=== PATIENT | female | born 1955 | race American Indian/Alaskan Native ===

== ENCOUNTER 2016-08-15 17:47 | Observation (INO) | payer MEDICARE ==
[2016-08-15 17:54] VITALS: BMI 33.3
[2016-08-15 18:27] LABS: HEMATOCRIT 33.9 % (36.0-48.0); MEAN CELL VOLUME 81.9 fL (80.0-105.0); MEAN CORPUSCULAR HEMOGLOBIN 27.5 pg (25.0-35.0); MEAN CORPUSCULAR HGB CONC 33.6 g/dl (31.0-37.0); MEAN PLATELET VOLUME 9.1 fl (7.0-11.0); PLATELET COUNT 341 10^3/uL (120.0-450.0); RED CELL DISTRIBUTION WIDTH 14.1 % (11.5-14.5); WHITE BLOOD COUNT 6.8 10^3/ul (4.5-11.0)
[2016-08-15 18:37] LABS: ADD MANUAL DIFF? YES
[2016-08-15 18:42] LABS: ALB/GLOB RATIO 1.1 (1.1-1.8); ALKALINE PHOSPHATASE 71 U/L (38-133); ALT/SGPT 25 U/L (7-56); AST/SGOT 24 U/L (15-39); BILIRUBIN,TOTAL 0.7 mg/dL (0.2-1.3); BLOOD UREA NITROGEN 15 mg/dL (7-21); CALCIUM 8.7 mg/dL (8.4-10.5); CARBON DIOXIDE 21 mmol/L (21-33); CHLORIDE 108 mmol/L (98-107); GFR AFRICAN-AMERICAN > 60; GLUCOSE,RANDOM 91 mg/dL (70-110); POTASSIUM 4.3 mmol/L (3.6-5.0); SODIUM 138 mmol/L (132-148); TOTAL PROTEIN 6.9 g/dL (5.8-8.3)
--- NOTE | 2016-08-15 18:49 | ED PDOC ---
Arrival/HPI - General Historian: Patient - History of Present Illness Symptom Onset: Sudden Symptom Course: Worsening Quality: Stabbing Severity Level: 3 <Na Garcia - Last Filed: 08/15/16 19:59> <Kasi Koroma - Last Filed: 08/15/16 20:19> - General Chief Complaint: Shortness Of Breath Time Seen by Provider: 08/15/16 18:06 - History of Present Illness Narrative History of Present Illness (Text): 08/15/16 18:44 67-year-old female with a history of hypertension, CHF presents today with shortness of breath that started around 2 PM today. Patient also complaining of sharp chest pain radiating to the back. Patient denies fevers or chills. Denies cough. Complaining of vague abdominal pain and "gassy" feeling since yesterday. States she is passing her bowels. Denies nausea or vomiting. Denies diarrhea. Patient states she did recently travel via plane from [place] to [place]. The patient denies dizziness or weakness. No medications taken at home for the pain. (Na Garcia) Past Medical History - Provider Review Nursing Documentation Reviewed: Yes - Travel History Have you recently traveled outside [place] w/in the past 3 mons?: No - Tetanus Immunization Tetanus Immunization: Unknown - Cardiac Hx Congestive Heart Failure: Yes Hx Hypertension: Yes - Psychiatric Hx Substance Use: No - Surgical History Other/Comment: Lap band surgery <Na Garcia - Last Filed: 08/15/16 19:59> Family/Social History - Physician Review Nursing Documentation Reviewed: Yes Family/Social History: Unknown Family HX Smoking Status: Never Smoked Hx Alcohol Use: No Hx Substance Use: No <Na Garcia - Last Filed: 08/15/16 19:59> Allergies/Home Meds <Na Garcia - Last Filed: 08/15/16 19:59> <Kasi Koroma - Last Filed: 08/15/16 20:19> Allergies/Adverse Reactions: Allergies No Known Allergies Allergy (Verified 08/15/16 17:54) Home Medications: Home Meds Medication Instructions Recorded Confirmed Carvedilol [Coreg] 25 mg PO DAILY 08/15/16 08/15/16 Ciprofloxacin HCl [Cipro] 500 mg PO DAILY 08/15/16 08/15/16 FLUoxetine [Prozac] 40 mg PO DAILY 08/15/16 08/15/16 Spironolactone [Aldactone] 25 mg PO DAILY 08/15/16 08/15/16 Zolpidem Tartrate [Ambien] 10 mg PO HS 08/15/16 08/15/16 Review of Systems - Review of Systems Constitutional: absent: Fatigue, Fevers ENT: absent: Sinus Congestion Respiratory: SOB. absent: Cough Cardiovascular: Chest Pain. absent: Palpitations Gastrointestinal: Abdominal Pain. absent: Diarrhea, Nausea, Vomiting Genitourinary Female: absent: Dysuria, Frequency Musculoskeletal: Back Pain. absent: Arthralgias, Neck Pain Skin: absent: Rash, Pruritis Neurological: absent: Dizziness Psychiatric: absent: Anxiety, Depression <Na Garcia - Last Filed: 08/15/16 19:59> Physical Exam Vital Signs Reviewed: Yes Temperature: Afebrile Blood Pressure: Normal Pulse: Regular Respiratory Rate: Normal Appearance: Positive for: Well-Appearing, Non-Toxic, Comfortable Pain Distress: None Mental Status: Positive for: Alert and Oriented X 3 - Systems Exam Head: Present: Atraumatic Mouth: Present: Moist Mucous Membranes Neck: Present: Normal Range of Motion Respiratory/Chest: Present: Clear to Auscultation, Good Air Exchange. No: Respiratory Distress, Accessory Muscle Use Cardiovascular: Present: Regular Rate and Rhythm, Normal S1, S2. No: Murmurs, Tachycardic Abdomen: Present: Tenderness (minimal upper abdominal tenderness.), Normal Bowel Sounds. No: Distention, Peritoneal Signs Back: Present: Normal Inspection Neurological: Present: GCS=15, Speech Normal Skin: Present: Warm, Dry, Normal Color. No: Rashes Psychiatric: Present: Alert, Oriented x 3 <Na Garcia - Last Filed: 08/15/16 19:59> Medical Decision Making <Na Garcia - Last Filed: 08/15/16 19:59> <Kasi Koroma - Last Filed: 08/15/16 20:19> ED Course and Treatment: 08/15/16 18:51 pt with chest pain radiating to back and shortness of breath. vital stable cbc; wnl cmp; wnl BNP: 340 d-dimer: 1.17 trop: wnl ekg; normal sinus rhythm at 73 bpm normal axisnormal intervals and no ST elevations cxr: cardiomegaly no infiltrate or effusion, elevated left hemidiaphragm CT dissection protocol; COMPARISON: No relevant prior studies available. FINDINGS: Pulmonary arteries: Unremarkable. No pulmonary embolism. Aorta: No acute findings. No thoracic aortic aneurysm. Lungs: Unremarkable. No mass. No consolidation. Pleural space: Unremarkable. No significant effusion. No pneumothorax. Heart: Unremarkable. No cardiomegaly. No significant pericardial effusion. No evidence of RV dysfunction. Bones/joints: No acute fracture. No dislocation. Soft tissues: Unremarkable. Lymph nodes: Unremarkable. No enlarged lymph nodes. Stomach and bowel: Gastric lap band noted. IMPRESSION: No evidence for acute abnormality in the chest. MICHELLE ROLLE | Preliminary Radiology Report Page 2 of 3 EXAM: CT Abdomen and Pelvis With Intravenous Contrast CLINICAL HISTORY: 61 years old, female; Pain; Abdominal pain; Chest pain; Patient HX: Chest pain/ back pain/abd pain TECHNIQUE: Axial computed tomography images of the abdomen and pelvis with intravenous contrast. This CT exam was performed using one or more of the following dose reduction techniques : automated exposure control, adjustment of the mA and/or kV according to patient size, and/ or use of iterative reconstruction technique. Coronal and sagittal reformatted images were created and reviewed. EXAM DATE/TIME: 08/15/2016 6:29 PM COMPARISON: No relevant prior studies available. FINDINGS: Lower thorax: No acute findings. ABDOMEN: Liver: Hepatomegaly noted. Gallbladder and bile ducts: Status post cholecystectomy. No ductal dilation. Pancreas: Unremarkable. No mass. No ductal dilation. Spleen: Unremarkable. No splenomegaly. Adrenals: Unremarkable. No mass. Kidneys and ureters: Right renal cysts. No hydronephrosis. Stomach and bowel: Gastric lap band noted. No obstruction. No mucosal thickening. Appendix: No findings to suggest acute appendicitis. PELVIS: Bladder: Bladder not well this tendon. Reproductive: Status post hysterectomy. ABDOMEN and PELVIS: Intraperitoneal space: Unremarkable. No free air. No significant fluid collection. Bones/joints: Mild lower lumbar spondylosis. No acute fracture. No dislocation. Soft tissues: See above. Vasculature: Unremarkable. No abdominal aortic aneurysm. Lymph nodes: Unremarkable. No enlarged lymph nodes. IMPRESSION: No evidence for acute abnormality. asa percocet given. pt takes percocet for back pain. pt reassessment; pt non toxic well appearing; still c/o back pain. pt adds she has hx of back pain; takes percocet. case discussed with Dr. torres will Admit observational status to Tele for chest pain r/o acs. impression; chest pain, back pain Admit observational status to tele; Dr. torres (Na Garcia) - Lab Interpretations Lab Results: 08/15/16 17:59 08/15/16 17:59 Lab Results 08/15/16 17:59: WBC 6.8, RBC 4.14, Hgb 11.4 L, Hct 33.9 L, MCV 81.9, MCH 27.5, MCHC 33.6, RDW 14.1, Plt Count 341, MPV 9.1, Neutrophils % (Manual) 39 L, Band Neutrophils % 0, Lymphocytes % (Manual) 47 H, Atypical Lymphs % 1 H, Monocytes % (Manual) 11 H, Eosinophils % (Manual) 2 08/15/16 17:59: Sodium 138, Potassium 4.3, Chloride 108 H, Carbon Dioxide 21, Anion Gap 13, BUN 15, Creatinine 0.9, Est GFR ( Amer) > 60, Est GFR (Non- Af Amer) > 60, Random Glucose 91, Calcium 8.7, Total Bilirubin 0.7, AST 24, ALT 25, Alkaline Phosphatase 71, Lactate Dehydrogenase 332 L, Total Creatine Kinase 126, Troponin I < 0.01, NT-Pro-B Natriuret Pep 340, Total Protein 6.9, Albumin 3.7, Globulin 3.3, Albumin/Globulin Ratio 1.1 08/15/16 17:59: D-Dimer, Quantitative 1.17 H - RAD Interpretation Radiology Orders: 08/15/16 18:06 CHEST PORTABLE [RAD] Stat 08/15/16 18:29 ANGIOGRAPHY DISECTION PROTOCOL [CT] Stat - Medication Orders Current Medication Orders: Discontinued Medications Aspirin (Aspirin) 325 mg PO STAT STA Stop: 08/15/16 20:02 Last Admin: 08/15/16 20:15 Dose: 325 mg Iohexol (Omnipaque 350 100 Ml) Confirm Administered Dose 350 mg .ROUTE .STK-MED ONE Stop: 08/15/16 18:53 Oxycodone/Acetaminophen (Percocet 5/325 Mg Tab) 1 tab PO STAT STA Stop: 08/15/16 20:02 Last Admin: 08/15/16 20:14 Dose: 1 tab - PA / ACQUISITION ASSOCIATE / Resident Statement / has reviewed & agrees with the documentation as recorded. <Kasi Koroma - Last Filed: 08/15/16 20:19> Disposition/Present on Arrival - Present on Arrival Any Indicators Present on Arrival: No History of DVT/PE: No History of Uncontrolled Diabetes: No Urinary Catheter: No History of Decub. Ulcer: No History Surgical Site Infection Following: None - Disposition Have Diagnosis and Disposition been Completed?: Yes Disposition Time: 19:59 Patient Plan: Observation, Telemetry <Na Garcia - Last Filed: 08/15/16 19:59> <Kasi Koroma - Last Filed: 08/15/16 20:19> - Disposition Diagnosis: Chest pain, Back pain Disposition: HOSPITALIZED Patient Problems: Current Active Problems Problem Status Onset Back pain Acute Chest pain Acute Condition: FAIR Discharge Instructions (ExitCare): Chest Pain (ED) Referrals: PCP,NO [Primary Care Provider] - Follow up with primary
[2016-08-15] MEDS ORDERED: Iohexol 350 MG/100 ML VIAL ONE (18:52)
[2016-08-15 18:55] LABS: TROPONIN I < 0.01 ng/mL
[2016-08-15 19:19] LABS: ATYPICAL LYMPHOCYTE 1 % (0.0-0.0); BAND 0 % (0-2); NEUTROPHIL 39 % (50.0-70.0)
[2016-08-15 19:20] LABS: EOSINOPHIL 2 % (0.0-3.0)
[2016-08-15] MEDS ORDERED: Oxycodone/Acetaminophen 5/325 mg Tab PO STA ×2 (20:01→23:34)
--- NOTE | 2016-08-15 23:47 | CP.PCM.PN ---
Subjective - Date & Time of Evaluation Date of Evaluation: 08/15/16 Time of Evaluation: 23:44 - Subjective Subjective: S:Patient was seen at bedside. Requests a sleeping pill.Also want pain medication for head ache and back ache. Has no other complaints. Denies sob, chest pain. O: Last Vital Signs 3 Temp 98.8 F 08/15/16 20:36 Pulse 76 08/15/16 22:00 Resp 18 08/15/16 21:28 BP 131/86 08/15/16 20:36 Pulse Ox 96 08/15/16 20:59 Awake, alert, not in distress. LUNGS:Normal breathing pattern. NEURO: Speech normal. A:Adjustment insomnia. Headache. Back pain. P:Ambien 5 mg PO x 1. Percocet 5/325 i PO x 1. Objective - Vital Signs/Intake and Output Vital Signs (last 24 hours): Temp Pulse Resp BP Pulse Ox 98.8 F 76 18 131/86 96 08/15/16 20:36 08/15/16 22:00 08/15/16 21:28 08/15/16 20:36 08/15/16 20:59
[2016-08-16 00:31] VITALS: O2SAT 100
[2016-08-16 02:48] LABS: TROPONIN I < 0.01 ng/mL
--- NOTE | 2016-08-16 08:15 | RAD ---
HISTORY: chest pain COMPARISON: No prior. FINDINGS: LUNGS: No active pulmonary disease. PLEURA: No significant pleural effusion identified, no pneumothorax apparent. CARDIOVASCULAR: Normal. OSSEOUS STRUCTURES: No significant abnormalities. VISUALIZED UPPER ABDOMEN: Normal. OTHER FINDINGS: None. IMPRESSION: No active disease.
--- NOTE | 2016-08-16 09:09 | CT ---
PROCEDURE: CT Angiography Chest, Abdomen and Pelvis with and without intravenous contrast HISTORY: ct pain/back pain/abd pain COMPARISON: None. TECHNIQUE: Contiguous axial images of the chest, abdomen and pelvis were obtained in the phase of aortic enhancement. Coronal and sagittal reformats were generated. IV dose administered: 100 cc of Omni 350 Radiation dose: Total exam DLP = 757 mGy-cm. This CT exam was performed using one or more of the following dose reduction techniques: Automated exposure control, adjustment of the mA and/or kV according to patient size, and/or use of iterative reconstruction technique. FINDINGS: CT ANGIOGRAPHY OF THE CHEST WITH & WITHOUT CONTRAST: AORTA (CHEST AND ABDOMEN): The thoracic and abdominal aorta are unremarkable, without aneurysm, dissection or rupture. No intramural thrombus identified in the thoracic aorta on the non-contrast ct of the chest. The pulmonary arteries are unremarkable The celiac axis, superior mesenteric artery, inferior mesenteric artery and the renal arteries are widely patent. The pelvic arteries are unremarkable. LUNGS: Clear. No nodule, mass or consolidation. MEDIASTINUM: Unremarkable. Normal caliber aorta and pulmonary arterial trunk. No aortic dissection. Normal size heart. LYMPH NODES: Unremarkable. PLEURA: Unremarkable. No pneumothorax. No pleural fluid. BONES: Unremarkable. OTHER FINDINGS: None. CT ANGIOGRAPHY OF THE ABDOMEN AND PELVIS WITH CONTRAST: LIVER: Unremarkable. No gross lesion or ductal dilatation. GALLBLADDER AND BILE DUCTS: Unremarkable. PANCREAS: Unremarkable. No gross lesion or ductal dilatation. SPLEEN: Unremarkable. ADRENALS: Unremarkable. No mass. KIDNEYS AND URETERS: Unremarkable. No hydronephrosis. No solid mass. VASCULATURE: Unremarkable. No aortic aneurysm. STOMACH AND BOWEL: Unremarkable. No obstruction. No gross mural thickening. A lap band is seen around the proximal stomach. APPENDIX: Normal appendix. PERITONEUM: Unremarkable. No free fluid. No free air. LYMPH NODES: Unremarkable. No enlarged lymph nodes. BLADDER: Unremarkable. REPRODUCTIVE: Unremarkable. BONES: No acute fracture. OTHER FINDINGS: The report concurs with the preliminary [facility] report IMPRESSION: Negative study
[2016-08-16] MEDS ORDERED: Oxycodone/Acetaminophen 5/325 mg Tab PO STA (10:10)
--- NOTE | 2016-08-16 10:46 | CARD ---
APPROVED REPORT EKG Measurement Heart [id number] ME [id number] [id number] <Conclusion> Normal sinus rhythm Moderate voltage criteria for LVH, may be normal variant Nonspecific T wave abnormality Abnormal ECG
[2016-08-16 11:12] LABS: TROPONIN I < 0.01 ng/mL
[2016-08-16] MEDS: Pantoprazole 40 mg EC Tab PO SCH (13:51)
[2016-08-16] MEDS: Oxycodone/Acetaminophen 5/325 mg Tab PO PRN (17:03)
--- NOTE | 2016-08-16 18:18 | CON ---
DATE: 08/16/2016 REASON FOR CONSULTATION: Cardiac evaluation, chest pain, history of nonischemic cardiomyopathy, stat us post cardiac catheterization in [place]. BRIEF CLINICAL HISTORY: This is a 61-year-old female with past medical history of congestive heart f ailure, status post cardiac catheterization in [place] around [facility]. The patient admitted wit h decompensated congestive heart failure. Cardiac catheterization was done by the right radial appro ach and found to be nonobstructive, no significant coronary artery disease. At that time, ejection f raction was low. Later on, the patient's had recent echocardiogram was done 2 weeks ago prior to com ing here, found to be ejection fraction 50%, who came from [place] after traveling on an airplane she complained of sharp chest pain shooting into the chest radiating to the back. The patient underwent CT angio yesterday; it was negative. Denies any chest pain, history of chronic back pain on 01/12, [place]. PAST MEDICAL HISTORY: Significant for nonischemic cardiomyopathy, congestive heart failure, status p ost cardiac catheterization on [facility] with a left radial approach in [place], recent ejection f raction 50% in [place], a week prior to coming here. SOCIAL HISTORY: Denies any smoking. Denies any history of alcohol abuse. The patient has had 3 pre gnancies and with last , no unusual symptoms noted. PAST SURGICAL HISTORY: Significant for status post hysterectomy 2 years ago. CURRENT MEDICATIONS: The patient is taking Coreg (carvedilol), Entresto, spironolactone, Ambien and Prozac. ALLERGIES: TO SHELLFISH, COMPLAINING OF SWELLING OF THE TONGUE AFTER HAVING IODINE FROM THE CT ANGIO . FAMILY HISTORY: Noncontributory. REVIEW OF SYSTEMS: As per HPI. PHYSICAL EXAMINATION: VITAL SIGNS: Temperature afebrile, heart rate 70, blood pressure 132/75. HEENT: PERRLA. Extraocular muscles intact. NECK: Supple. No carotid bruits. No thyromegaly. CHEST: Clear to auscultation. HEART: S1, S2 regular. ABDOMEN: Soft. EXTREMITIES: Clubbing and cyanosis negative. BLOOD WORKUP: as follows: WBC 6.8, hemoglobin 11.____, hematocrit 33.9, platelet count 341. Chemis try shows sodium 138, potassium 4.3, chloride 108, carbon dioxide 21, gap of 13, BUN 15, creatinine 0 .9. Troponin 0.[address] angio of the chest was done that showed negative study. EKG showed normal sinus, moderate LVH, nonspecific ST-T changes. IMPRESSION: Atypical chest pain. So far, no evidence of acute coronary syndrome. CT angio is negat rogelio for pulmonary embolism. History of cardiac catheterization in [facility]; Found to be normal c oronaries; cardiomyopathy, ejection fraction recently improved to 50%. RECOMMENDATION: Continue Coreg, continue aspirin, continue spironolactone. Upon discharge, the adelita ent cam have Entresto and follow up in [place]. We will discontinue telemetry. No further cardiac w orkup is planned. Thank you, Dr. Diehl, for providing the opportunity in taking care of the patient. We will follow w ith you. Will discontinue telemetry. Lourdes Oliva MD cc: [id number] TT: 08/16/2016 18:17:58 Confirmation # [id number] Dictation # [id number] mn
--- NOTE | 2016-08-16 22:55 | CON ---
DATE: 08/16/2016 REFERRING PHYSICIAN: Dr. Diehl. REASON FOR CONSULT: Nonspecific chest pain, shortness of breath, mild epigastric pain, loud snoring, daytime sleepy. HISTORY OF PRESENT ILLNESS: This is a 61-year-old female with past medical history significant for c ongestive heart failure, history of cardiac catheterization in the last year, coronary artery d isease, but has cardiomyopathy with decreased LV function. She recently traveled from [place] and [facility] to the Emergency Room with chest pain and back pain. In ER had a CT angio done, which was unremar kable. She also has some chronic back pain. Admits to have snoring, daytime sleepy and tired. PAST MEDICAL HISTORY: By history has cardiomyopathy, may have a sleep apnea syndrome, chronic back p ain. SOCIAL HISTORY: Denied any smoking or alcohol use. ALLERGIES: SHELLFISH. FAMILY HISTORY: No significant cardiopulmonary disease reported. MEDICATIONS: She is on Aldactone 25 mg daily, Ambien 10 mg at bedtime, Benadryl 25 mg 3 times a day p.r.n., Coreg 25 mg daily, Percocet 5/325 one tab twice a day p.r.n., Protonix 40 mg daily, Prozac 40 mg daily, Singulair 10 mg daily. She just received Benadryl 1 dose, Percocet 1 dose. REVIEW OF SYSTEMS: No headache, no rhinitis. Admits to have snoring, daytime sleepy and tired. Mil d epigastric pain. No nausea, no dysuria. No leg pain or leg swelling. PHYSICAL EXAMINATION: GENERAL: Lying in the bed in no acute distress. VITAL SIGNS: Temp is 98, heart rate is 85, respiratory rate is 18, blood pressure 115/75, pulse ox 1 00% on room air. HEENT: Moist mucous membranes. Crowded airway. Mallampati score is 4. NECK: Supple. No JVD. LUNGS: Have fair airflow. HEART: S1, S2. ABDOMEN: Mild epigastric tenderness. EXTREMITIES: There is no edema. NEUROLOGIC: Awake, alert, follows simple commands. LABORATORY DATA: Shows hemoglobin 11.4, hematocrit 33.9, WBC 6.8, platelet is 341. D-dimer is 1.17 on admission. Sodium 138, potassium 4.3, chloride 108, bicarbonate 21, BUN 15, creatinine 0.9, calci um 8.7, total bili 0.7, AST 24, ALT 25, alk phos 71. LDH 273. Troponin less than 0.01. Albumin 3.7 . CTA was done and shows negative study, lungs are clear. IMPRESSION AND PLAN: Nonspecific chest pain, mildly elevated D-dimer, may have a sleep apnea syndrom e, may have gastroesophageal reflux disease, overweight, chronic back pain. From a pulmonary point o f view, she is doing okay, seen by cardiology. We will observe overnight. Add Protonix 40 mg daily. DVT prophylaxis. Discharge planning tomorrow if her cardiac workup is unremarkable. Will suggest outpatient attended sleep study. Thank you and will follow with you. Lourdes Moreno MD cc: [id number] TT: 08/16/2016 22:54:05 Confirmation # [id number] Dictation # [id number]
[2016-08-17 06:48] LABS: ADD MANUAL DIFF? NO
[2016-08-17 06:52] LABS: BASO # 0.02 K/mm3 (0.0-2.0); BASO % 0.3 % (0.0-3.0); EOS # 0.2 (0.0-0.7); EOS % 2.8 % (1.5-5.0); GRAN # 2.58 (1.4-6.5); GRAN % 44.4 % (50.0-68.0); HEMATOCRIT 33.1 % (36.0-48.0); LYMPH # 2.6 (1.2-3.4); LYMPH % 44.8 % (22.0-35.0); MEAN CELL VOLUME 81.9 fL (80.0-105.0); MEAN CORPUSCULAR HEMOGLOBIN 27.5 pg (25.0-35.0); MEAN CORPUSCULAR HGB CONC 33.5 g/dl (31.0-37.0); MONO # 0.5 (0.1-0.6); MONO % 7.7 % (1.0-6.0); PLATELET COUNT 320 10^3/uL (120.0-450.0); WHITE BLOOD COUNT 5.8 10^3/ul (4.5-11.0)
[2016-08-17 07:06] LABS: ALB/GLOB RATIO 1.1 (1.1-1.8); ALKALINE PHOSPHATASE 62 U/L (38-133); ALT/SGPT 27 U/L (7-56); AST/SGOT 23 U/L (15-39); BILIRUBIN,TOTAL 0.7 mg/dL (0.2-1.3); BLOOD UREA NITROGEN 9 mg/dL (7-21); CALCIUM 8.3 mg/dL (8.4-10.5); CARBON DIOXIDE 21 mmol/L (21-33); CHLORIDE 110 mmol/L (98-107); CHOLESTEROL 190 mg/dL (130-200); GFR AFRICAN-AMERICAN > 60; GLUCOSE,RANDOM 83 mg/dL (70-110); MAGNESIUM 2.2 mg/dL (1.7-2.2); PHOSPHOROUS 2.7 mg/dL (2.5-4.5); POTASSIUM 3.8 mmol/L (3.6-5.0); SODIUM 137 mmol/L (132-148); TOTAL PROTEIN 6.3 g/dL (5.8-8.3)
[2016-08-17 07:21] VITALS: RESP 20; TEMP 98.5
--- NOTE | 2016-08-17 07:37 | HP ---
The patient is a 61-year-old lady, new for me. CHIEF COMPLAINT: Shortness of breath, chest pain. HISTORY OF PRESENT ILLNESS: The patient is a 61-year-old lady with past medical history of hypertension, congestive heart failure, came to the Emergency Room with shortness of breath, started around 2:00 p.m. The patient was complaining of sharp chest pain radiating to the neck. The patient denies fever or chills. Denies cough and gassy feeling since yesterday. States that she is passing her bowel. Denies nausea and vomiting. Denies diarrhea. The patient denied dizziness, weakness. No fever, no chills. We admitted the patient. PAST MEDICAL HISTORY: Congestive heart failure, hypertension, lap band surgery. FAMILY HISTORY: Father and mother noncontributory. HABITS: Never smoked, no drugs, no ethanol. ALLERGIES: The patient is not allergic with any medications. HOME MEDICATIONS: Coreg, Cipro, Prozac, spironolactone, Ambien REVIEW OF SYSTEMS: The patient is seen and examined on the bedside in the telemetry. Cousin was on the bedside. Length of time discussion done. No nausea, vomiting, or diarrhea. Complaining about headache. Sometimes shortness of breath and chest pain. No fever, no chills. no dizziness. PHYSICAL EXAMINATION: VITAL SIGNS: Temperature 98.6, pulse 85, blood pressure 150/75, respiratory rate is 17. HEENT: Head normocephalic, atraumatic. Eyes: PERRLA. Extraocular muscles intact. Conjunctivae clear. Nose patent. Mucous membranes moist. NECK: Supple. No carotid bruit, JVD or thyromegaly. CHEST: Bilaterally symmetrical. HEART: S1, S2 positive. LUNGS: Clear to auscultation. ABDOMEN: Soft. Bowel sounds positive. No organomegaly. EXTREMITIES: No edema, no cyanosis. NEUROLOGIC: The patient is awake, alert and moving all 4 extremities. No focal deficits. LABORATORY DATA: White blood cells 6.4, hemoglobin 11.4, hematocrit 33.9, and platelets 341. Sodium 138, potassium 4.3, BUN 15, creatinine 0.9, AST 24, ALT 25. ASSESSMENT AND PLAN: The patient is a 61-year-old lady with anemia, hypochloremia, came with chest pain and shortness of breath, seen by the fishing rod mechanic and court worker, history of cardiomyopathy as per patient, sleep apnea syndrome, chronic back pain, Percocet is given for the pain. Cardiac enzymes were done. According to court worker, nonspecific chest pain. Mildly elevated D-dimer. May have sleep apnea syndrome, gastroesophageal reflux disease, Protonix given. Deep venous thrombosis prophylaxis given. Gastrointestinal and deep vein thrombosis prophylaxis. Repeat labs. We will follow. Zohra Diehl MD cc: [id number] TT: 08/17/2016 07:36:18 tn MTDD
[2016-08-17] MEDS: Pantoprazole 40 mg EC Tab PO SCH (09:23)
[2016-08-17 09:26] VITALS: BP 115/65; PULSE 85
[2016-08-17] MEDS: Oxycodone/Acetaminophen 5/325 mg Tab PO PRN (09:28)
[2016-08-17] MEDS ORDERED: Omega-3-Acid Ethyl Esters 1 GM Cap PO SCH (10:00)
[2016-08-17] MEDS ORDERED: Potassium Chloride 20 mEq ER Tab PO ONE (11:40)
[2016-08-17] MEDS ORDERED: Alum-Mag Hydrox-Simethicone Susp (30 mL) PO ONE (11:40)
--- NOTE | 2016-08-17 12:08 | PN ---
DATE: 08/17/2016 REASON FOR CONSULTATION AND FOLLOWUP: Cardiac evaluation, chest pain, history of nonischemic cardiom yopathy, status post cardiac catheterization in [place]. BRIEF CLINICAL HISTORY: A 61-year-old female with past medical history significant for congestive he art failure, nonischemic cardiomyopathy, status post cardiac catheterization in [place] around Thanks giving. The patient admitted with decompensated congestive heart failure at that time. Cardiac cath eterization was right radial approach, found to be nonobstructive coronary artery disease. Initially , the ejection fraction on recent echo 2 weeks ago in [place] showed an ejection fraction 50%, who re cently flew from [place], traveling ____, having sharp pain, so came in here. CT angio was negative. PHYSICAL EXAMINATION: VITAL SIGNS: Temperature afebrile, heart rate 60, blood pressure 115/65. HEENT: PERRLA. Extraocular muscles intact. NECK: Supple. No carotid bruit or thyromegaly. CHEST: Clear to auscultation. HEART: S1, S2 regular. ABDOMEN: Soft. EXTREMITIES: Clubbing and cyanosis negative. IMPRESSION: History of congestive heart failure, nonischemic cardiomyopathy, status post cardiac cat heterization, obesity, body mass index 33.9 kg/m2, sharp pain, atypical. CT angiogram is negative fo r pulmonary embolism. RECOMMENDATION: Continue Coreg, continue spironolactone, continue Entresto ____ the patient starts a t home. The patient will follow up in [place]. Complaining of some abdominal pain. We will give 1 dose of Mylanta. Thank you, Dr. Diehl, for providing us the opportunity in taking care of this patient. The patient is on spironolactone, potassium 3.0. We will give 20 extra dose of K-Dur. Lourdes Oliva MD cc: [id number] TT: 08/17/2016 12:07:41 Confirmation # [id number] Dictation # [id number] tn
--- NOTE | 2016-08-18 11:57 | DS ---
CHIEF COMPLAINT: Shortness of breath and chest pain. HISTORY OF PRESENT ILLNESS: The patient is a 61-year-old lady with past medical history of hypertension, congestive heart failure, came to the Emergency Room with shortness of breath, started around 2 p.m. The patient was complaining of sharp chest pain radiating to the neck. The patient denies any fever or chills. Denies cough. Feeling gassy. Denies any nausea or vomiting. The patient was admitted. Did angiography CT. Consult was called with cardiology Dr. Oliva, shaving machine operator Dr. Moreno. The patient was seen by Dr. Mariano also. The patient got better. Cleared by the boom worker and shaving machine operator to discharge home. Follow up as outpatient. Prescription of medications given. PAST MEDICAL HISTORY: Congestive heart failure, hypertension, lap band surgery. FAMILY HISTORY: Father and mother noncontributory. HABITS: Never smoked. No drugs, no ethanol. ALLERGIES: The patient is not allergic to any medications. HOME MEDICATIONS: Coreg, Cipro, Prozac, spironolactone, Ambien. REVIEW OF SYSTEMS: The patient was seen and examined on the bedside, looks comfortable. No nausea, vomiting, or diarrhea. No hematuria or hematochezia. No swelling of the leg. No chest pain, no palpitation, no headache, no dizziness, no shortness of breath. OBJECTIVE: VITAL SIGNS: The patient is afebrile. Heart rate 70, blood pressure 120/75, respiratory rate 18. HEENT: Head normocephalic, atraumatic. Eyes: PERRLA. Extraocular muscles intact. Conjunctivae are clear. Nose is patent. Mucous membranes moist. NECK: Supple. No carotid bruit, JVD, or thyromegaly. CHEST: Bilaterally symmetrical. HEART: S1, S2 positive. LUNGS: Clear to auscultation. ABDOMEN: Soft. Bowel sounds positive. No organomegaly. EXTREMITIES: No edema, no cyanosis. NEUROLOGIC: The patient is awake, alert, moving all 4 extremities. No focal deficits. LABORATORY DATA: White blood cells 5.8, hemoglobin 11.1, hematocrit 33.1, platelets 320. Sodium 137, potassium 3.8, BUN 9, creatinine 0.8, hemoglobin A1c 5.5, calcium 8.3. ASSESSMENT AND PLAN: The patient is a 61-year-old lady with anemia, hypochloremia, hypocalcemia seen by the boom worker. History of congestive heart failure, nonischemic cardiomyopathy, status post cardiac catheterization, obesity, body mass index of 33.9 kg/m2, came with sharp chest pain. According to boom worker, looks like atypical. CT angiogram was negative for pulmonary embolism. The patient is getting Coreg, spironolactone. The patient lives in [place], cleared by the boom worker and shaving machine operator to follow up in [place] with her own primary care physician. Potassium was low. Extra potassium K-Dur given. Has sleep apnea syndrome, chronic back pain. Mildly elevated D-dimer. May have sleep apnea syndrome, may have gastroesophageal reflux disease. We observed the patient overnight. Protonix given. Gastrointestinal and deep venous thrombosis prophylaxis given. Needs outpatient sleep study and follow up with primary care physician. Continue home medications. Zohra Diehl MD cc: [id number] TT: 08/18/2016 11:56:44 jn MTDD
== END 2016-08-17 14:02 | disposition home or self-care (01) ==
LOC: ED 17:47 → ERH 20:19 → 2RSO 22:01 → 5RNO 08-16 20:53
PROVIDERS: ADMIT Internal Medicine; ATTEND Internal Medicine
DX: R07.89 Other chest pain (principal); R06.02 Shortness of breath; I11.0 Hypertensive heart disease with heart failure; I50.9 Heart failure, unspecified; I42.9 Cardiomyopathy, unspecified; F51.02 Adjustment insomnia; M54.9 Dorsalgia, unspecified; R51 Headache; G89.29 Other chronic pain; G47.30 Sleep apnea, unspecified; D64.9 Anemia, unspecified; K21.9 Gastro-esophageal reflux disease without esophagitis; I25.10 Atherosclerotic heart disease of native coronary artery without angina pectoris; E66.9 Obesity, unspecified; Z68.33 Body mass index [BMI] 33.0-33.9, adult; Z98.84 Bariatric surgery status
CPT/HCPCS: 36415; 71010; 71275; 74175; 80053; 80061; 82550; 83036; 83615; 83735; 83880; 84100; 84443; 84484; 85025; 85378; 93005; 99285; G0378; Q9967